=== PATIENT | male | born 1950 | race Caucasian/White ===

== ENCOUNTER 2017-02-21 15:03 | Emergency (ER) | payer MEDICARE, OTHER ==
[~2017-02-21] VITALS: Ht 177.8 cm; Wt 129.6 kg
[~2017-02-21 15:03] MED LIST: ASPI-628 PO; ATEN50TA PO; GLUC1CAP8 PO; IBUP200C PO; LOSA1TAB70 PO; MELA3TAB35 PO; METF500T4 PO; POTA99TA21 PO; PRIM50TA PO; ROSU5TAB PO
--- NOTE | 2017-02-21 15:14 | ED.REPORT ---
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 First episode occurred 0545 while patient was waking up from sleep, the episode lasting a half hour with pain located under his left nipple, described as dull, and the patient feeling like he was leaning over a metal rail with a bolt pressing into him. The pain faded, and he was able to walk around. The second episode occurred at 1100 and lasted a half hour to 45 minutes. The patient describes sleeping a little around the time of this second episode. The third episode occurred a little after 1200, after the patient ate tacos for lunch and was reclining in their chair, this episode lasting a half hour to 45 minutes. After the third episode, the patient decided to come into the ED. Associated symptoms include flushed face. He denies any fever, cough, cold, chills, or swelling in feet or ankles. The patient has baseline pain associated with the "stressed ligament behind heart". The patient received a stress test a while ago and was told that he may have had ID in the past. He denies any history of chest pain or heart pain. He had catheterization in March of 2015, but he reports no surgical history. 2-3 weeks ago, he was told by his doctor to start doing upper body strength exercises. He lives with his who he reports has been informed that he is at the ED. Nursing Notes Stated Complaint: CHEST PAIN Chief Complaint: Chest Pain Nursing Notes Reviewed: Yes Allergies: Coded Allergies: No Known Allergies (Unverified , 04/03/15) Scheduled Aspirin (Aspirin) 81 Mg Tablet 81 MG PO DAILY Atenolol (Atenolol) 50 Mg Tablet 50 MG PO HS Cholecalciferol (Vitamin D3) (Vitamin D3) 2,000 Unit Capsule UNIT PO DAILY Losartan/HCTZ 100-25 mg (Losartan/HCTZ 100-25 mg) 1 Each Tablet 1 EACH PO DAILY Melatonin (Melatonin) 3 Mg Tablet 3 MG PO HS Metformin (Metformin) 500 Mg Tablet 500 MG PO AM Metformin (Metformin) 500 Mg Tablet 1,000 MG PO QPM Potassium Gluconate (Potassium) 99 Mg Tablet 99 MG PO DAILY Propranolol HCl (Propranolol HCl) 10 Mg Tablet MG PO TID Rosuvastatin Calcium (Crestor) 5 Mg Tablet 5 MG PO DAILY General Time Seen by MD: 15:12 Chief Complaint Chest pain Hx Obtained From: Patient Arrived By: Walk-in Sudden in Onset?: No Onset Occurred: 9 - 12 hours ago Symptom Duration: Intermittent Quality: Dull Severity: Current: Mild Severity: Maximum: Moderate Recent Healthcare: No recent doctor visit Similar Sx Previous: No Past Medical History Past Medical History Notes: Monty Staton, MIGUEL Past Medical History Stressed ligament behind heart since 1992. Benign essential tremor inf [place] noted on EKG without any clinical indication Reports: Diabetes mellitus, Hypertension Past Surgical History Reports no surgical history. Smoking History Never Smoker Social History Other Social History: Good social support, Ambulatory Status Independent Review of Systems Review of Systems Note: Flushed face. Denies having sickness. Constitutional: Denies: Chills, Fever Respiratory: Denies: Non-productive cough Cardiovascular: Reports: Chest pain Musculoskeletal: Denies: Extremity swelling (Denies swelling in feet or ankles. ) Complete sys rev & neg: except as marked. Physical Exam Initial Vital Signs Vital Signs (First) Date Time Temp Pulse Resp B/P Pulse Ox O2 Delivery O2 Flow Rate FiO2 02/21/17 15:38 36.9 65 22 145/59 92 Room Air Initial VS: Reviewed General/Constitutional: Awake, Alert Appearance / Presentation: Positive: Obese (moderate) Respiratory / Chest: Atraumatic, Breath sounds NL, Breath sounds = bilat, No respiratory distress, No rales, No rhonchi, No wheezing Cardiovascular: Heart rate NL, Regular rhythm, Heart sounds NL, No gallop, No murmurs, No rubs Abdomen: Atraumatic, No guarding, No rebound Neck: Atraumatic, Full range of motion Back: Atraumatic, Full range of motion Lower Extremity / Pelvis / MS: Atraumatic, Full range of motion Skin: Atraumatic, Color NL, Warm, Dry Neurologic: Oriented X3, Speech NL Head / Eyes: Atraumatic, Normocephalic, PERRL, EOMI ENT: Atraumatic, Mucous membranes moist Upper Extremity / MS: Atraumatic, Full range of motion Wrist / Hand: Atraumatic, Full range of motion Interpretation & Diagnostics Lab Results Interpretation Result Diagram: 02/21/17 1522 02/21/17 1522 Test 02/21/17 15:22 White Blood Count 9.7th/mm3 (3.8-10.1) Red Blood Count 5.28mil/mm3 (4.40-5.80) Hemoglobin 16.1g/dL (13.8-17.2) Hematocrit 47.6% (41.0-50.0) Mean Corpuscular Volume 90.2fL (81-100) Mean Corpuscular Hemoglobin 30.5pg (27.0-35.0) Mean Corpuscular Hemoglobin Concent 33.8% (32.0-37.0) Red Cell Distribution Width 13.4% (12.3-15.4) Platelet Count 180bil/L (150-400) Neutrophils (%) (Auto) 57.0% (40-74) Lymphocytes (%) (Auto) 27.3% (14-46) Monocytes (%) (Auto) 11.7% (4-12) Eosinophils (%) (Auto) 2.4% (0-5) Basophils (%) (Auto) 1.1% (0-3) Sodium Level 132mEq/L (134-144) Potassium Level 4.0mEq/L (3.5-5.2) Chloride Level 94mEq/L (97-108) Carbon Dioxide Level 23mmol/L (18-29) Blood Urea Nitrogen 18mg/dL (8-27) Creatinine 0.69mg/dL (0.76-1.27) Estimat Glomerular Filtration Rate 122mL/min (>59) Glucose Level 193mg/dL (60-99) Calcium Level 10.2mg/dL (8.5-10.1) Magnesium Level 2.0mg/dL (1.6-2.6) Total Bilirubin 0.5mg/dL (0.0-1.2) Aspartate Amino Transf (AST/SGOT) 46U/L (0-50) Alanine Aminotransferase (ALT/SGPT) 58U/L (0-44) Alkaline Phosphatase 109U/L (25-160) Troponin T < 0.010ug/L (0.0-0.011) Total Protein 7.6g/dL (6.4-8.4) Albumin 4.3g/dL (3.4-5.0) ECG Interpretation ECG Interpretation: Rate is 69. Sinus rhythm. Left ventricular hypertrophy. Old inferior infarct. No acute ischemia. Time: 15:13 Interpreted by: ED physician X-Ray Chest Interpretation Chest Xray Interpretation: IMPRESSION: No acute pulmonary process. Dictated by: Teresa Tony M.D. on 02/21/2017 at 16:08 Approved by: Teresa Tony M.D. on 02/21/2017 at 16:08 View: Portable, 1 view Interpretation / Wet Read by: Interpret - Radiologist Re-Eval/Medical Decision Source of Hx: Old records Time of Eval: 18:58 Re-Evaluation/Progress Note: Rechecked patient, explained test results, diagnosis, and plan for discharge. Patient understands and agrees with the plan. Consultation : Referral / Consult Name: Shalini Burleson MD Call Returned at: 17:52 Note: Discussed patient case with Dr. Loya who says that the patient should be sent home and that the patient needs to call Dr. Broussard's office tomorrow to set up a repeat stress test, as his last was [address] Loya counsels to send the patient home with Nitro just in case. Counseled Regarding: Diagnosis, Lab results, Need for follow-up, When/why to return to ED Discharge & Departure Primary Impression: Non-cardiac chest pain Disposition: Home Discharge Condition All VS Reviewed: Yes Condition: Improved Patient Instructions: Chest Pain (ED) Additional Instructions: I spoke with Dr Sarah Beth roth. Your labs, EKG, Chest x ray are all very reassuring today. This is not likely your heart causing your pain. I am going to send home with some nitroglycerin, should you have recurrent pain , try using one under the tongue and see if that makes any difference. Dr. Addison would like you to call the cardiology office tomorrow and schedule a follow-up appointment. Your last stress echocardiogram was over 2 years ago and it may be appropriate to repeat physiologic stress testing in the near future. Dr. Broussard will help figure out what the appropriate studies need to be. Please continue all of your current medications. If you feel that you are getting worse please return to the emergency department Thank you for letting us help today. Referrals: Monty Staton MD (PCP) Scribe Attestation Portions of this note were transcribed by Migel Robert. I, Dr. Ramon personally performed the history, physical exam and medical decision-making; I reviewed and confirmed the accuracy of the information in the transcribed note. Signed by: Ashley Morris, 02/21/2017 1910. copies to: Monty Staton MD, Shawna L MD Feb 21, 2017 15:14 Migel Robert Feb 21, 2017 15:40
[2017-02-21 15:38] VITALS: BP 145/59; PULSE 65; RESP 22; O2SAT 92
[2017-02-21 15:49] LABS: BASOPHILS % (AUTO) 1.1 % (0-3); EOSINOPHILS % (AUTO) 2.4 % (0-5); MONOCYTES % (AUTO) 11.7 % (4-12); Mean Corpuscular Hemoglobin 30.5 pg (27.0-35.0); Mean Corpuscular Volume 90.2 fL (81-100); Platelet Count 180 bil/L (150-400)
--- NOTE | 2017-02-21 16:09 | DRSVH ---
PROCEDURE: X-RAY CHEST ONE VIEW, PORTABLE ([id number]) INDICATIONS: PAIN TECHNIQUE: One view of the chest was acquired. COMPARISON: None. FINDINGS: Surgical changes and devices: None. Lungs and pleura: No pleural effusions or pneumothorax. Lungs are clear. Mediastinum: Mediastinal contours appear normal. Heart size is normal. Bones and chest wall: No suspicious bony lesions. Overlying soft tissues appear unremarkable. IMPRESSION: No acute pulmonary process. Dictated by: Teresa Tony M.D. on 02/21/2017 at 16:08 Approved by: Teresa Tony M.D. on 02/21/2017 at 16:08
[2017-02-21] MEDS ORDERED: PROP10TA8 PO (16:53)
[2017-02-21] MEDS ORDERED: CHOL200047 PO (16:54)
[2017-02-21] MEDS ORDERED: ASPI-973 PO (16:56)
[2017-02-21 17:50] VITALS: BP 144/59; PULSE 67; RESP 22; O2SAT 95
[2017-02-21 19:08] VITALS: BP 130/92; PULSE 63; RESP 19; O2SAT 96
== END 2017-02-21 19:05 | disposition home or self-care (01) ==
LOC: SED 15:03
DX: R07.89 Other chest pain (principal); R23.2 Flushing; I10 Essential (primary) hypertension; E11.9 Type 2 diabetes mellitus without complications; G25.0 Essential tremor; I25.2 Old myocardial infarction; Z87.898 Personal history of other specified conditions; Z79.84 Long term (current) use of oral hypoglycemic drugs; Z79.82 Long term (current) use of aspirin

== ENCOUNTER 2017-05-08 19:51 | Emergency (ER) | payer MEDICARE, OTHER ==
[~2017-05-08] VITALS: Ht 177.8 cm; Wt 129.6 kg
[~2017-05-08 19:51] MED LIST changes: -ASPI-628 PO; +ASPI-973 PO; +CHOL200047 PO; -GLUC1CAP8 PO; -IBUP200C PO; -PRIM50TA PO; +PROP10TA8 PO
[2017-05-08 19:59] VITALS: BP 161/85; PULSE 80; RESP 28; O2SAT 92
--- NOTE | 2017-05-08 21:15 | ED.REPORT ---
HPI-General Illness Date of Service May 08, 2017 ED Provider: Dr. Ethan Camara The patient is a 66 year old male w/ a hx of DM II on metformin who presents to the ED due to SOB earlier today. Patient says he had a "bronchial attack." Associated symptoms include vomiting, green-productive cough, wheezing, and diaphoresis. Pt describes that he had multiple episodes of vomiting and began vomiting bile. Earlier, he was coughing so hard he couldn't breathe. He is not feeling SOB at the ED and this has never happened to him before. Pt denies chest pain and LE edema. He had a recent stress test done and was diagnosed with a "minor blockage." About 3 months ago, he came to [facility] for an episode chest pain at which time there were no acute findings. 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 Nursing Notes Stated Complaint: POSS BRONCHIAL ATTACK Chief Complaint: Respiratory Distress Nursing Notes Reviewed: Yes Allergies: Coded Allergies: No Known Allergies (Unverified , 05/08/17) Scheduled Aspirin (Aspirin) 81 Mg Tablet 81 MG PO DAILY Atenolol (Atenolol) 50 Mg Tablet 50 MG PO HS Cholecalciferol (Vitamin D3) (Vitamin D3) 2,000 Unit Capsule UNIT PO DAILY Loratadine (Claritin) 10 Mg Capsule 10 MG PO DAILY Losartan/HCTZ 100-25 mg (Losartan/HCTZ 100-25 mg) 1 Each Tablet 1 EACH PO DAILY Melatonin (Melatonin) 3 Mg Tablet 3 MG PO HS Metformin (Metformin) 500 Mg Tablet 500 MG PO AM Metformin (Metformin) 500 Mg Tablet 1,000 MG PO QPM Potassium Gluconate (Potassium) 99 Mg Tablet 99 MG PO DAILY Propranolol HCl (Propranolol HCl) 10 Mg Tablet MG PO TID Rosuvastatin Calcium (Crestor) 5 Mg Tablet 5 MG PO DAILY General Time Seen by MD: 21:14 Chief Complaint Other (shortness of breath) Hx Obtained From: Patient Arrived By: Walk-in Sudden in Onset?: Yes Onset Occurred: Just prior to arrival Symptom Duration: Since onset Severity: Current: No pain currently Recent Healthcare: No recent doctor visit, No recent hospitalization Similar Sx Previous: No Past Medical History Past Medical History Notes: Monty Staton, PCP Past Medical History Stressed ligament behind heart since 1992. Benign essential tremor inf [place] noted on EKG without any clinical indication Reports: Diabetes mellitus, Hypertension Past Surgical History Reports no surgical history. Smoking History Never Smoker Social History Other Social History: Good social support, Ambulatory Status Independent Review of Systems Full Review of Systems Respiratory: Reports: Prod cough, green, Shortness of breath, Wheezing Cardiovascular: Denies: Chest pain GI: Reports: Vomiting Musculoskeletal: Denies: Extremity swelling Skin: Reports Diaphoresis Complete sys rev & neg: except as marked. Physical Exam Vital Signs Vital Signs Date Time Temp Pulse Resp B/P Pulse Ox O2 Delivery O2 Flow Rate FiO2 05/09/17 02:54 36.6 72 17 140/82 96 Room Air 05/09/17 01:53 36.5 70 18 142/82 94 Room Air 05/08/17 23:47 72 20 147/80 93 Room Air 05/08/17 21:44 60 16 98 Room Air 05/08/17 19:59 36.6 80 28 161/85 92 Room Air Initial VS: Reviewed General/Constitutional: Awake, Alert Appearance / Presentation: Positive: Obese, morbidly Head / Eyes: Atraumatic, Normocephalic, PERRL, EOMI ENT: Atraumatic, Airway patent, Mucous membranes moist, Pharynx NL Neck: Supple, No JVD Respiratory / Chest: No wheezing breathing at upper portion of respiratory cycle mildly bronchiospastic no crackles Cardiovascular: Heart rate NL, Regular rhythm, Heart sounds NL Lower Extremity / Pelvis / MS: Atraumatic, No deformity trace edema Interpretation & Diagnostics Interpretation & Diagnostics: CT PULMONARY ANGIOGRAM IMPRESSION: 1. No evidence of pulmonary embolism or thoracic aortic dissection. Ectasia of the ascending thoracic aorta. 2. Hepatic steatosis. 7.4 cm partially imaged left upper renal hypodensity is likely a cyst. Radiologist: Gokul Mazariegos M.D. Lab Results Interpretation Result Diagram: 05/08/17 22005/08/17 220 Test 05/08/17 22:00 05/09/17 01:49 White Blood Count 9.7th/mm3 (3.8-10.1) Red Blood Count 5.23mil/mm3 (4.40-5.80) Hemoglobin 16.0g/dL (13.8-17.2) Hematocrit 47.5% (41.0-50.0) Mean Corpuscular Volume 90.8fL (81-100) Mean Corpuscular Hemoglobin 30.6pg (27.0-35.0) Mean Corpuscular Hemoglobin Concent 33.7% (32.0-37.0) Red Cell Distribution Width 12.9% (12.3-15.4) Platelet Count 189bil/L (150-400) Neutrophils (%) (Auto) 59.9% (40-74) Lymphocytes (%) (Auto) 24.3% (14-46) Monocytes (%) (Auto) 11.0% (4-12) Eosinophils (%) (Auto) 3.2% (0-5) Basophils (%) (Auto) 1.0% (0-3) Prothrombin Time 11.3sec (8.1-12.5) Prothromb Time International Ratio 1.05ratio Activated Partial Thromboplast Time 28.3sec (22.8-33.0) D-Dimer 0.53mg/L FEU (<0.50) Sodium Level 132mEq/L (134-144) Potassium Level 3.7mEq/L (3.5-5.2) Chloride Level 94mEq/L (97-108) Carbon Dioxide Level 19mmol/L (18-29) Blood Urea Nitrogen 19mg/dL (8-27) Creatinine 0.74mg/dL (0.76-1.27) Estimat Glomerular Filtration Rate 112mL/min (>59) Glucose Level 242mg/dL (60-99) Lactic Acid Level 2.3mmol/L (0.4-2.0) Calcium Level 9.5mg/dL (8.5-10.1) Magnesium Level 1.9mg/dL (1.6-2.6) Total Bilirubin 0.6mg/dL (0.0-1.2) Aspartate Amino Transf (AST/SGOT) 33U/L (0-50) Alanine Aminotransferase (ALT/SGPT) 52U/L (0-44) Alkaline Phosphatase 105U/L (25-160) Troponin T < 0.010ug/L (0.0-0.011) Pro-B-Type Natriuretic Peptide 44.59pg/mL (0-376) Total Protein 7.4g/dL (6.4-8.4) Albumin 4.4g/dL (3.4-5.0) Procalcitonin 0.19ng/mL (0.00-0.08) Urine Color Yellow (YELLOW) Urine Appearance Clear (CLEAR,HAZY) Urine pH 6.0 (5.0-8.0) Urine Specific [place] 1.031 (1.003-1.035) Urine Protein Negativemg/dL (NEG,TRACE) Urine Glucose (UA) 500mg/dL (NEGATIVE) Urine Ketones Tracemg/dL (NEGATIVE) Urine Occult Blood Negative (NEGATIVE) Urine Nitrite Negative (NEGATIVE) Urine Bilirubin Negative (NEGATIVE) Urine Urobilinogen Normalmg/dL (NORMAL) Urine Leukocyte Esterase Negative (NEGATIVE) Urine RBC 0-2/hpf (0-2) Urine WBC 0-5/hpf (0-5) Urine Epithelial Cells Few/hpf (NONE-MOD) Urine Crystals None seen (NONE SEEN) Urine Bacteria None/hpf (NONE-FEW) Urine Hyaline Casts None/lpf (NONE) Urine Granular Casts None seen (NONE SEEN) Urine Waxy Casts None seen (NONE SEEN) Urine Red Blood Cell Casts None seen (NONE SEEN) Urine White Blood Cell Casts None seen (NONE SEEN) Urine Mucus Present (None Seen) Urine Trichomonas None seen (NONE SEEN) Urine Yeast None (NONE SEEN) Urine Culture Reflexed Not indicated X-Ray Chest Interpretation Chest Xray Interpretation: IMPRESSION: no acute findings View: Portable Interpretation / Wet Read by: Wet read ED physician Re-Eval/Medical Decision Med Decision/Clinical Course 66-year-old presents with cough vomiting and some shortness of breath, and appears to be breathing at the top of his respiratory cycle consistent with bronchospasm. No other findings to suggest cardiac disease or pulmonary embolus. He is begun with albuterol metered-dose inhaler and second generation antihistamines. Discharged in stable condition. Time of Eval: 22:55 Re-Evaluation/Progress Note: Pt received breathing treatment. No improvement of symptoms. Pt has normal white count and normal x-ray. Time of Eval: 02:15 Re-Evaluation/Progress Note: Pt rechecked. Informed pt of slightly elevated d-dimer. CT scan is negative. Informed pt of diagnosis of bronchial spasm and plan to send home with inhaler and allergy medication. Pt understands and agrees with plan. Counseled Regarding: Diagnosis, Lab results, Need for follow-up, When/why to return to ED Discharge & Departure Primary Impression: Reactive airway disease Asthma severity: unspecified severity Asthma complication type: uncomplicated Qualified Code: J45.909 - Unspecified asthma, uncomplicated Disposition: Home Discharge Condition All VS Reviewed: Yes Condition: Stable Additional Instructions: Thank you for entrusting us with your care today. Your evaluation today did not show any dangerous findings. Your bronchiospasm could be triggered by allergies. I am sending you home with an inhaler and some allergy medication. Take as directed. Follow up with your primary care physician as needed. Return to the Emergency Department if you experience any new or worsening symptoms. Referrals: Monty Staton MD (PCP) Phil Attestation Portion of this note were transcribed by Kiah Fernandez. I, Dr. Camara, personally performed the history, physical exam, and medical decision-making: I reviewed and confirmed the accuracy for the information in the transcribed note. Signed by: phil Stokes, 05/09/17 0030 copies to: Monty Staton MD, Christopher W MD May 08, 2017 21:14 Kiah Fernandez May 08, 2017 21:23
[2017-05-08] MEDS ORDERED: Albuterol 2.5 mg/3 mL Inhalation Solution NEB ONE (21:25)
[2017-05-08] MEDS ORDERED: Albuterol-Ipratropium 3 mL Inhalation Solution NEB ONE (21:25)
[2017-05-08 21:44] VITALS: PULSE 60; RESP 16; O2SAT 98
[2017-05-08 22:33] LABS: EOSINOPHILS % (AUTO) 3.2 % (0-5); Mean Corpuscular Hemoglobin 30.6 pg (27.0-35.0); Mean Corpuscular Volume 90.8 fL (81-100); NEUTROPHILS % (AUTO) 59.9 % (40-74); Platelet Count 189 bil/L (150-400)
[2017-05-08 22:53] LABS: D-Dimer 0.53 mg/L FEU (<0.50); INR 1.05 ratio
--- NOTE | 2017-05-08 23:01 | DRSVH ---
PROCEDURE: X-RAY CHEST, TWO VIEWS ([id number]) INDICATIONS: SHORT OF BREATH TECHNIQUE: 2 views of the chest were acquired. COMPARISON: [facility], CR, XR CHEST 1VW (PORTABLE), 02/21/2017, 15:50. FINDINGS: Surgical changes and devices: None. Lungs and pleura: No pleural effusions or pneumothorax. Lungs are clear. Mediastinum: Mediastinal contours are normal. Heart size is normal. Bones and chest wall: No suspicious bony abnormalities. Soft tissues appear unremarkable. IMPRESSION: 1. No acute cardiopulmonary disease. Dictated by: Pierre Reyes M.D. on 05/08/2017 at 22:59 Approved by: Pierre Reyes M.D. on 05/08/2017 at 23:00
[2017-05-08 23:21] LABS: Magnesium 1.9 mg/dL (1.6-2.6)
[2017-05-08 23:22] LABS: TROPONIN T < 0.010 ug/L (0.0-0.011)
[2017-05-08 23:47] VITALS: BP 147/80; PULSE 72; RESP 20; O2SAT 93
[2017-05-09 01:53] VITALS: BP 142/82; PULSE 70; RESP 18; O2SAT 94
[2017-05-09 02:05] LABS: APPEARANCE,URINE CLEAR (CLEAR,HAZY); COLOR,URINE YELLOW (YELLOW); OCCULT BLOOD,URINE NEGATIVE (NEGATIVE); UROBILINOGEN,URINE NORMAL (NORMAL)
[2017-05-09] MEDS ORDERED: Albuterol HFA 200 Puff Inhaler (Vent Pts Only) INHALATION PRN (02:25)
[2017-05-09] MEDS ORDERED: LORA10CA PO (02:36)
[2017-05-09 02:54] VITALS: BP 140/82; PULSE 72; RESP 17; O2SAT 96
--- NOTE | 2017-05-09 08:01 | DRSVH ---
PROCEDURE: CT ANGIO CHEST PULMONARY EMBOLISM ([id number]) INDICATIONS: sob, elevated d dimer TECHNIQUE: After the administration of intravenous contrast, 2 mm thick sections acquired from the pulmonary api jessi to the posterior costophrenic angles. 3-dimensional maximum intensity projection (MIP) coronal a nd sagittal reformats were then acquired through the thorax. For radiation dose reduction, the follo wing was used: automated exposure control, adjustment of mA and/or kV according to patient size. COMPARISON: None. FINDINGS: Image quality: Diagnostic. Pulmonary arteries: Pulmonary arteries are normal in size, and demonstrate no intraluminal filling d efects to suggest central pulmonary embolism. Lungs and pleura: The lungs are well aerated without focal consolidation, effusion, or pneumothorax. No overt heart failure is identified. This examination appears to have been obtained in expiration. Mild basilar atelectasis is present. There is slight prominence of the bronchial montano. No lung m ass or definite pulmonary nodule is appreciated. Mediastinum: Heart size is normal, without pericardial effusion. No mediastinal or hilar adenopathy . Thoracic aorta is normal in caliber and enhancement. Atherosclerosis of the thoracic aorta is pre sent. Esophagus is normal in caliber, without hiatal hernia. Bones and chest wall: No suspicious bony lesions. Ribs and thoracic spine appear intact throughout. Moderate multilevel degenerative changes of the spine are present. Thyroid gland is not enlarged. No axillary or supraclavicular adenopathy. Abdomen: The liver is hypodense when compared to the spleen. A prominent cystic structure within the left upper quadrant probably represents a renal cyst and is noted to measure up to approximately 7.6 cm, not adequately characterized or evaluated on this exam. Otherwise, the included portions of the upper abdomen are unremarkable. IMPRESSION: 1. No pulmonary emboli. 2. Mild basilar atelectasis. Superimposed pneumonia is difficult to exclude but felt to be unlikely . 3. Hepatic steatosis. 4. Probable left renal cyst, not adequately evaluated. Note: The preliminary report provided by [facility] is concordant with the final report. Dictated by: Ronald Amin M.D. on 05/09/2017 at 7:56 Approved by: Ronald Amin M.D. on 05/09/2017 at 7:59
== END 2017-05-09 02:55 | disposition home or self-care (01) ==
LOC: SED 19:51
DX: J45.909 Unspecified asthma, uncomplicated (principal); R11.14 Bilious vomiting; R61 Generalized hyperhidrosis; I11.9 Hypertensive heart disease without heart failure; E11.59 Type 2 diabetes mellitus with other circulatory complications; I25.2 Old myocardial infarction; Z79.82 Long term (current) use of aspirin; Z79.84 Long term (current) use of oral hypoglycemic drugs
CPT/HCPCS: 36415; 71020; 71275; 80053; 81000; 83605; 83735; 83880; 84145; 84484; 85025; 85378; 85610; 85730; 87040; 93005; 94640; 94664; 99285; J7613; J7620; Q9967